=== PATIENT | male | born 1965 | race Caucasian/White ===

== ENCOUNTER 2018-02-25 07:20 | Day surgery (SDC) | payer OTHER ==
[2018-02-25] MEDS ORDERED: LIDOCAINE 2% (SDV) 5 ML INJ (08:03)
[2018-02-25] MEDS ORDERED: PROPOFOL 40 ML (08:03)
[2018-02-25] MEDS ORDERED: GLYCOPYRROLATE 0.4 MG INJ (08:05)
[2018-02-25] MEDS ORDERED: PROPOFOL 20 ML (09:01)
== END 2018-02-25 14:38 | disposition home or self-care (01) ==
LOC: GIL 07:20
DX: Z12.11 Encounter for screening for malignant neoplasm of colon (principal); D12.6 Benign neoplasm of colon, unspecified; K64.8 Other hemorrhoids; E66.01 Morbid (severe) obesity due to excess calories; Z68.43 Body mass index [BMI] 50.0-59.9, adult
CPT/HCPCS: 45380; 88305